=== PATIENT | female | born 1980 | race Caucasian/White ===

== ENCOUNTER 2018-10-27 16:23 | Emergency (ER) | payer OTHER ==
[~2018-10-27] VITALS: Ht 157.5 cm; Wt 95.3 kg
[2018-10-27 17:18] LABS: INFLUENZA A ANTIGEN None Detected (None Detect); INFLUENZA B ANTIGEN None Detected (None Detect)
[2018-10-27] MEDS ORDERED: TRIAMCINOLONE A80 G2 TOP (17:53)
[2018-10-27] MEDS ORDERED: TESSALON PERLE100 MG PO (17:53)
[2018-10-27] MEDS ORDERED: AMOXICILLIN 50500 MG PO (17:53)
[2018-10-27 18:08] VITALS: BP 153/97
== END 2018-10-27 18:08 | disposition home or self-care (01) ==
LOC: M.ERS 16:23
PROVIDERS: Personal Emergency Response Attendant
DX: J06.9 Acute upper respiratory infection, unspecified (principal); H66.91 Otitis media, unspecified, right ear; R21 Rash and other nonspecific skin eruption; F17.200 Nicotine dependence, unspecified, uncomplicated; I10 Essential (primary) hypertension; Z91.040 Latex allergy status; Z90.710 Acquired absence of both cervix and uterus

== ENCOUNTER 2018-11-25 19:41 | Emergency (ER) | payer OTHER ==
[~2018-11-25] VITALS: Ht 157.5 cm; Wt 95.3 kg
[~2018-11-25 19:41] MED LIST: AMOXICILLIN 50500 MG PO; TESSALON PERLE100 MG PO; TRIAMCINOLONE A80 G2 TOP
[2018-11-25] MEDS ORDERED: LIDOCAINE VISC100 ML PO (19:52)
[2018-11-25] MEDS ORDERED: ACETAMINOPHEN-1 EAC1 PO (19:52)
[2018-11-25] MEDS ORDERED: AMOXICILLIN 50500 MG PO (19:52)
[2018-11-25 19:57] VITALS: BP 153/109
== END 2018-11-25 20:03 | disposition home or self-care (01) ==
LOC: M.ERS 19:41
DX: K08.89 Other specified disorders of teeth and supporting structures (principal); I10 Essential (primary) hypertension; Z90.710 Acquired absence of both cervix and uterus; Z91.040 Latex allergy status

== ENCOUNTER 2019-02-08 20:48 | Emergency (ER) | payer OTHER ==
[~2019-02-08] VITALS: Ht 152.4 cm; Wt 90.7 kg
[~2019-02-08 20:48] MED LIST changes: +ACETAMINOPHEN-1 EAC1 PO; +LIDOCAINE VISC100 ML PO
[2019-02-08] MEDS ORDERED: IBUPROFEN 600600 M1 PO (21:07)
[2019-02-08] MEDS ORDERED: ACETAMINOPHEN-1 EAC1 PO (21:07)
[2019-02-08 21:37] VITALS: BP 149/113
== END 2019-02-08 21:37 | disposition home or self-care (01) ==
LOC: M.ERS 20:48
DX: S00.33XA Contusion of nose, initial encounter (principal); I10 Essential (primary) hypertension; Z91.040 Latex allergy status; Z90.710 Acquired absence of both cervix and uterus; Y04.2XXA Assault by strike against or bumped into by another person, initial encounter; Y92.89 Other specified places as the place of occurrence of the external cause; Y93.89 Activity, other specified; Y99.8 Other external cause status

== ENCOUNTER 2019-09-08 09:16 | Emergency (ER) | payer OTHER ==
[~2019-09-08] VITALS: Ht 154.9 cm; Wt 95.3 kg
[~2019-09-08 09:16] MED LIST changes: +IBUPROFEN 600600 M1 PO
[2019-09-08] MEDS ORDERED: IBUPROFEN 800800 M1 PO (09:36)
[2019-09-08] MEDS ORDERED: PENICILLIN VK500 MG PO (09:36)
[2019-09-08 09:52] VITALS: BP 149/101
== END 2019-09-08 09:52 | disposition home or self-care (01) ==
LOC: M.ERS 09:16
DX: K02.9 Dental caries, unspecified (principal); I10 Essential (primary) hypertension; F17.210 Nicotine dependence, cigarettes, uncomplicated; Z90.710 Acquired absence of both cervix and uterus; Z91.040 Latex allergy status